=== PATIENT | male | born 1955 | race Hispanic/Latino ===

== ENCOUNTER 2017-04-26 12:33 | Observation (INO) | payer MEDICARE ==
[2017-04-26 12:49] VITALS: BMI 37.5
[2017-04-26] MEDS ORDERED: Sodium Chloride 0.9% 1,000 ML IV ONE (14:12)
[2017-04-26] MEDS ORDERED: Sodium Chloride 0.9% 1,000 ML ONE (14:20)
[2017-04-26 14:39] LABS: BASO # 0.1 K/uL (0.0-0.2); BASO % 0.9 % (0.0-2.0); EOS # 0.3 K/uL (0.0-0.7); EOS % 4.7 % (0.0-4.0); HEMATOCRIT 42.4 % (35.0-51.0); LYMPH # 1.5 K/uL (1.0-4.3); LYMPH % 22.9 % (20.0-40.0); MEAN CELL VOLUME 88.4 fL (80.0-94.0); MEAN CORPUSCULAR HEMOGLOBIN 30.4 pg (27.0-31.0); MEAN CORPUSCULAR HGB CONC 34.4 g/dL (33.0-37.0); MEAN PLATELET VOLUME 7.3 fL (7.2-11.7); MONO # 0.6 K/uL (0.0-0.8); MONO % 9.4 % (0.0-10.0); NRBC % 0.5 % (0.0-2.0); RED CELL DISTRIBUTION WIDTH 13.6 % (11.5-14.5); WHITE BLOOD COUNT 6.7 K/uL (4.8-10.8)
--- NOTE | 2017-04-26 14:50 | C.PDOC ---
History Of Present Illness 61 y/o male presents to ED c/o sudden onset of chest pain one hour ago. Pt states that he was washing dishes when he suddenly felt sharp pain in his chest that lasted for a few seconds. Pt states that his chest pain resolved, but began to feel dizzy afterwards. Notes that dizziness still persists and is described as room spinning and lightheaded, and worse with movement. Denies history of vertigo. Denies shortness of breath, or fever. Time Seen by Provider: 04/26/17 13:39 Chief Complaint (Nursing): Chest Pain History Per: Patient History/Exam Limitations: no limitations Onset/Duration Of Symptoms: Days Current Symptoms Are (Timing): Still Present Quality: "Pain" Associated Symptoms: denies: Nausea, Dyspnea, Diaphoresis, Syncope Modifying Factors: None Exacerbating Factors: None Alleviating Factors: None Recent travel outside of the [place]: No Additional History Per: Patient Past Medical History Reviewed: Historical Data, Nursing Documentation, Vital Signs Vital Signs: Last Vital Signs Temp 97.9 F 04/26/17 12:39 Pulse 89 04/26/17 16:47 Resp 16 04/26/17 16:47 BP 150/78 04/26/17 16:47 Pulse Ox 97 04/26/17 16:47 - Medical History PMH: Atrial Fibrillation, CAD, Cardia Arrhythmia, COPD, Depression, Emphysema ( interstitial fibrosis), Fractures, Gastritis, HTN, Hypercholesterolemia, Hyperlipidemia, TIA Denies: Chronic Kidney Disease - [facility] Procedures ETHMOIDECTOMY (02/13/98) INTRANAS LES DESTRUCTION (02/13/98) INTRANASAL ANTROTOMY (02/13/98) SUBMUC NASAL SEPT RESECT (02/13/98) TURBINECTOMY NEC (02/13/98) Family History: States: Unknown Family Hx - Social History Hx Alcohol Use: No Hx Substance Use: No Review Of Systems Except As Marked, All Systems Reviewed And Found Negative. Constitutional: Negative for: Fever, Chills Cardiovascular: Negative for: Chest Pain, Palpitations Respiratory: Negative for: Shortness of Breath Gastrointestinal: Negative for: Nausea, Vomiting, Abdominal Pain Neurological: Positive for: Dizziness. Negative for: Weakness, Numbness, Headache Physical Exam - Physical Exam Appears: Non-toxic, No Acute Distress Skin: Normal Color, Warm, Dry Head: Atraumatic, Normacephalic Eye(s): bilateral: Normal Inspection Oral Mucosa: Moist Neck: Normal ROM, Supple Chest: Symmetrical Cardiovascular: Rhythm Regular, No Murmur Respiratory: Normal Breath Sounds, No Rales, No Rhonchi, No Wheezing Gastrointestinal/Abdominal: Soft, No Tenderness Extremity: Normal ROM Neurological/Psych: Oriented x3, Normal Speech ED Course And Treatment - Laboratory Results Result Diagrams: 04/26/17 14:32 04/26/17 14:32 ECG: Interpreted By Me, Viewed By Me ECG Rhythm: Sinus Rhythm ECG Interpretation: No Acute Changes Rate From EC O2 Sat by Pulse Oximetry: 95 Pulse Ox Interpretation: Normal - Other Rad CXR X-Ray: Viewed By Me, Read By Radiologist Interpretation: PROCEDURE: CHEST RADIOGRAPH, 1 VIEW. HISTORY: Shortness of breath. COMPARISON: None available. FINDINGS: LUNGS: The lungs are well inflated. PLEURA: No pneumothorax or pleural fluid seen. CARDIOVASCULAR: Normal. OSSEOUS STRUCTURES: No significant abnormalities. VISUALIZED UPPER ABDOMEN: Normal. OTHER FINDINGS: None. IMPRESSION: No active and clear pulmonary disease. Progress Note: Blood work, EKG, CXR ordered and reviewed. Patient was given Antivert, and IV fluids. On re-eval, Patient is now asymptomatic, denies any neurologic complaints, is ambulating well, and is tolerating PO. case discussed with Dr. Henry who agrees upon admission. Disposition - Disposition Disposition: HOSPITALIZED Condition: GOOD - PA / ANALYTICAL DATA SCIENTIST / Resident Statement MD/DO has reviewed & agrees with the documentation as recorded. - Scribe Statement The provider has reviewed the documentation as recorded by the Patsyibian Valencia All medical record entries made by the Patsyibian were at my direction and personally dictated by me. I have reviewed the chart and agree that the record accurately reflects my personal performance of the history, physical exam, medical decision making, and the department course for this patient. I have also personally directed, reviewed, and agree with the discharge instructions and disposition.
[2017-04-26 14:54] LABS: INR 1.5
[2017-04-26 14:58] LABS: ALB/GLOB RATIO 1.3 (1.0-2.1); ALKALINE PHOSPHATASE 52 U/L (38-126); ALT/SGPT 59 U/L (21-72); AST/SGOT 56 U/L (17-59); BILIRUBIN,TOTAL 0.7 mg/dL (0.2-1.3); BLOOD UREA NITROGEN 15 mg/dL (9-20); CALCIUM 8.3 mg/dl (8.6-10.4); CARBON DIOXIDE 28 mmol/L (22-30); CHLORIDE 98 mmol/L (98-107); GFR AFRICAN-AMERICAN > 60; GLUCOSE,RANDOM 186 mg/dL (75-110); POTASSIUM 3.5 mmol/L (3.6-5.2); SODIUM 131 mmol/L (132-148); TOTAL PROTEIN 6.7 g/dL (6.3-8.3)
--- NOTE | 2017-04-26 15:08 | RAD ---
PROCEDURE: CHEST RADIOGRAPH, 1 VIEW HISTORY: Shortness of breath COMPARISON: None available. FINDINGS: LUNGS: The lungs are well inflated. PLEURA: No pneumothorax or pleural fluid seen. CARDIOVASCULAR: Normal. OSSEOUS STRUCTURES: No significant abnormalities. VISUALIZED UPPER ABDOMEN: Normal. OTHER FINDINGS: None. IMPRESSION: No active and clear pulmonary disease.
[2017-04-26] MEDS ORDERED: Albuterol HFA 90 mcg/actuation (8 g) INH PRN (18:26)
[2017-04-26 19:27] VITALS: RESP 20
--- NOTE | 2017-04-26 20:53 | CP.PCM.HP ---
History of Present Illness - History of Present Illness History of Present Illness: 61 y/o male with multiple medical problems presents to ED c/o sudden onset of chest pain. Pt states that he was washing dishes when he suddenly felt sharp pain in his chest that lasted for a few seconds. Pt states that his chest pain resolved, but began to feel dizzy afterwards. Notes that dizziness at present impruving. Present on Admission - Present on Admission Any Indicators Present on Admission: No Review of Systems - Constitutional Constitutional: As Per HPI - Cardiovascular Cardiovascular: As Per HPI - Respiratory Respiratory: As Per HPI - Gastrointestinal Gastrointestinal: As Per HPI - Musculoskeletal Musculoskeletal: As Per HPI - Neurological Neurological: As Per HPI - Psychiatric Psychiatric: As Per HPI Past Patient History - Past Medical History & Family History Past Medical History?: Yes - Past Social History Smoking Status: Never Smoked - CARDIAC Hx Atrial Fibrillation: Yes Hx Cardia Arrhythmia: Yes Hx Hypercholesterolemia: Yes Hx Hypertension: Yes - PULMONARY Hx Chronic Obstructive Pulmonary Disease (COPD): Yes Hx Emphysema: Yes (interstitial fibrosis) - NEUROLOGICAL Hx Transient Ischemic Attacks (TIA): Yes - HEENT Hx HEENT Problems: No - RENAL Hx Chronic Kidney Disease: No - ENDOCRINE/METABOLIC Hx Endocrine Disorders: Yes Hx Diabetes Mellitus Type 2: Yes - HEMATOLOGICAL/ONCOLOGICAL Hx Blood Disorders: No - INTEGUMENTARY Hx Dermatological Problems: No - MUSCULOSKELETAL/RHEUMATOLOGICAL Hx Fractures: Yes - GASTROINTESTINAL Hx Gastritis: Yes - GENITOURINARY/GYNECOLOGICAL Hx Genitourinary Disorders: No - PSYCHIATRIC Hx Depression: Yes Hx Substance Use: No - SURGICAL HISTORY Hx Cardiac Catheterization: Yes Other/Comment: 2004-rupture hernia,stesticle surgery,groin hernia then repeated it again . polyps removed intestine - ANESTHESIA Hx Anesthesia: Yes Hx Anesthesia Reactions: No Hx Malignant Hyperthermia: No Meds Allergies/Adverse Reactions: Allergies Allergy/AdvReac Type Severity Reaction Status Date / Time iodine Allergy ANAPHYLAXIS Verified 04/26/17 12:48 latex Allergy RASH Verified 04/26/17 12:48 contrast media Allergy ANAPHYLAXIS Uncoded 04/26/17 12:48 Physical Exam - Constitutional Appears: Non-toxic - Head Exam Head Exam: ATRAUMATIC, NORMAL INSPECTION, NORMOCEPHALIC - Eye Exam Eye Exam: Normal appearance - ENT Exam ENT Exam: Mucous Membranes Moist - Neck Exam Neck exam: Positive for: Full Rom, Normal Inspection - Respiratory Exam Respiratory Exam: Clear to Auscultation Bilateral - Cardiovascular Exam Cardiovascular Exam: REGULAR RHYTHM, +S1, +S2 - GI/Abdominal Exam GI & Abdominal Exam: Normal Bowel Sounds, Soft - Extremities Exam Extremities exam: Positive for: normal inspection - Neurological Exam Neurological exam: Alert, CN II-XII Intact, Normal Gait, Oriented x3, Reflexes Normal - Psychiatric Exam Psychiatric exam: Normal Affect - Skin Skin Exam: Normal Color Results - Vital Signs Recent Vital Signs: Last Vital Signs Temp 98.8 F 04/26/17 19:22 Pulse 83 04/26/17 19:22 Resp 20 04/26/17 19:22 BP 155/84 H 04/26/17 19:22 Pulse Ox 95 04/26/17 19:22 - Labs Result Diagrams: 04/26/17 14:32 04/26/17 14:32 Labs: Laboratory Results - last 24 hr 04/26/17 04/26/17 04/26/17 14:32 14:32 14:32 WBC 6.7 RBC 4.80 Hgb 14.6 Hct 42.4 MCV 88.4 MCH 30.4 MCHC 34.4 RDW 13.6 Plt Count 254 MPV 7.3 Neut % (Auto) 62.1 Lymph % (Auto) 22.9 [place] % (Auto) 9.4 Eos % (Auto) 4.7 H Baso % (Auto) 0.9 Neut # 4.2 Lymph # 1.5 [place] # 0.6 Eos # 0.3 Baso # 0.1 PT 17.6 H INR 1.5 APTT 41 H Sodium 131 L Potassium 3.5 L Chloride 98 Carbon Dioxide 28 Anion Gap 9 L BUN 15 Creatinine 0.9 Est GFR ( Amer) > 60 Est GFR (Non-Af Amer) > 60 Random Glucose 186 H Calcium 8.3 L Total Bilirubin 0.7 AST 56 ALT 59 Alkaline Phosphatase 52 Total Creatine Kinase 159 CK-MB (Mass) 3.85 H Troponin I < 0.0120 Total Protein 6.7 Albumin 3.8 Globulin 3.0 Albumin/Globulin Ratio 1.3 Lipase 52 Assessment & Plan (1) Hypertensive cardiovascular disease Status: Acute (2) Diabetes 1.5, managed as type 2 Status: Chronic (3) Hypercholesteremia Status: Chronic (4) Obesity (BMI 35.0-39.9 without comorbidity) Status: Chronic (5) Chest pain Status: Acute (6) CAD (coronary artery disease) Status: Chronic (7) Vertigo Status: Acute - Assessment and Plan (Free Text) Plan: As per orders.
[2017-04-26] MEDS ORDERED: Potassium Chloride 20 mEq ER Tab PO ONE (20:56)
[2017-04-26] MEDS ORDERED: (Lantus) Insulin Glargine, Recombinant SC SCH (22:00)
[2017-04-26] MEDS: (Novolin R) Insulin Human Regular 100 units/ml vial SC SCH (22:10)
--- NOTE | 2017-04-27 07:32 | CP.PCM.CON ---
History of Present Illness - History of Present Illness History of Present Illness: CONSULT DICTATED ABDUCT VERTIGO VESTIBULO NEURONITIS Vs CONCRETE INSPECTOR -VBI MRI AND CAROTID Past Patient History - Past Medical History & Family History Past Medical History?: Yes - Past Social History Smoking Status: Never Smoked - CARDIAC Hx Atrial Fibrillation: Yes Hx Cardia Arrhythmia: Yes Hx Hypercholesterolemia: Yes Hx Hypertension: Yes - PULMONARY Hx Chronic Obstructive Pulmonary Disease (COPD): Yes Hx Emphysema: Yes (interstitial fibrosis) - NEUROLOGICAL Hx Transient Ischemic Attacks (TIA): Yes - HEENT Hx HEENT Problems: No - RENAL Hx Chronic Kidney Disease: No - ENDOCRINE/METABOLIC Hx Endocrine Disorders: Yes Hx Diabetes Mellitus Type 2: Yes - HEMATOLOGICAL/ONCOLOGICAL Hx Blood Disorders: No - INTEGUMENTARY Hx Dermatological Problems: No - MUSCULOSKELETAL/RHEUMATOLOGICAL Hx Fractures: Yes - GASTROINTESTINAL Hx Gastritis: Yes - GENITOURINARY/GYNECOLOGICAL Hx Genitourinary Disorders: No - PSYCHIATRIC Hx Depression: Yes Hx Substance Use: No - SURGICAL HISTORY Hx Cardiac Catheterization: Yes Other/Comment: 2004-rupture hernia,stesticle surgery,groin hernia then repeated it again . polyps removed intestine - ANESTHESIA Hx Anesthesia: Yes Hx Anesthesia Reactions: No Hx Malignant Hyperthermia: No Meds Allergies/Adverse Reactions: Allergies Allergy/AdvReac Type Severity Reaction Status Date / Time iodine Allergy ANAPHYLAXIS Verified 04/26/17 12:48 latex Allergy RASH Verified 04/26/17 12:48 contrast media Allergy ANAPHYLAXIS Uncoded 04/26/17 12:48 - Medications Medications: Current Medications Albuterol (Ventolin Hfa 90 Mcg/Actuation (8 G)) 1 puff INH RQ6 PRN PRN Reason: Shortness of Breath Allopurinol (Zyloprim) 300 mg PO DAILY [facility] Amitriptyline HCl (Elavil) 50 mg PO HS [facility] Last Admin: 04/26/17 22:04 Dose: 50 mg Aspirin (Ecotrin) 81 mg PO DAILY [facility] Glipizide (Glucotrol) 10 mg PO BID [facility] Last Admin: 04/26/17 22:10 Dose: Not Given Home Med (Evolocumab [Repatha Sureclick]) 140 mg INJ DAILY [facility] Home Med (Garlic [Garlic]) 1,000 mg PO TID [facility] Home Med (Mv,Natan,Min/Iron/Folic Acid/Lut [Complete Multi Tablet]) 1 tab PO DAILY [facility] Home Med (Ubidecarenone [Coq-10]) 400 mg PO TID [facility] Hydrochlorothiazide (Hydrodiuril) 25 mg PO DAILY [facility] Insulin Glargine (Lantus) 65 unit SC HS [facility] Last Admin: 04/26/17 22:10 Dose: Not Given Insulin Human Regular (Novolin R) 0 unit SC ACHS [facility] PRN Reason: Protocol Last Admin: 04/26/17 22:10 Dose: Not Given Losartan Potassium (Cozaar) 100 mg PO DAILY [facility] Losartan Potassium (Cozaar) 100 mg PO DAILY [facility] Metoprolol Tartrate (Lopressor) 100 mg PO HS [facility] Last Admin: 04/26/17 22:04 Dose: 100 mg Montelukast Sodium (Singulair) 10 mg PO QPM [facility] Rgdol-2-Mcyy Ethyl Esters (Lovaza) 1 gm PO BID [facility] Pantoprazole Sodium (Protonix Ec Tab) 40 mg PO DAILY [facility] Rivaroxaban (Xarelto) 20 mg PO DAILY [facility] Tiotropium [employer] (Spiriva Inhalation Handihaler Device) 1 inhaler INH RQD [facility] Results - Vital Signs Recent Vital Signs: Last Vital Signs Temp 98.1 F 04/26/17 23:20 Pulse 75 04/27/17 04:09 Resp 20 04/26/17 23:20 BP 157/84 H 04/26/17 23:20 Pulse Ox 95 04/26/17 23:20 - Labs Result Diagrams: 04/26/17 14:32 04/26/17 14:32 Labs: Laboratory Results - last 24 hr 04/26/17 04/26/17 04/26/17 14:32 14:32 14:32 WBC 6.7 RBC 4.80 Hgb 14.6 Hct 42.4 MCV 88.4 MCH 30.4 MCHC 34.4 RDW 13.6 Plt Count 254 MPV 7.3 Neut % (Auto) 62.1 Lymph % (Auto) 22.9 [place] % (Auto) 9.4 Eos % (Auto) 4.7 H Baso % (Auto) 0.9 Neut # 4.2 Lymph # 1.5 [place] # 0.6 Eos # 0.3 Baso # 0.1 PT 17.6 H INR 1.5 APTT 41 H Sodium 131 L Potassium 3.5 L Chloride 98 Carbon Dioxide 28 Anion Gap 9 L BUN 15 Creatinine 0.9 Est GFR ( Amer) > 60 Est GFR (Non-Af Amer) > 60 POC Glucose (mg/dL) Random Glucose 186 H Calcium 8.3 L Total Bilirubin 0.7 AST 56 ALT 59 Alkaline Phosphatase 52 Total Creatine Kinase 159 CK-MB (Mass) 3.85 H Troponin I < 0.0120 Total Protein 6.7 Albumin 3.8 Globulin 3.0 Albumin/Globulin Ratio 1.3 Lipase 52 04/26/17 04/26/17 04/27/17 21:48 22:49 06:34 WBC RBC Hgb Hct MCV MCH MCHC RDW Plt Count MPV Neut % (Auto) Lymph % (Auto) [place] % (Auto) Eos % (Auto) Baso % (Auto) Neut # Lymph # [place] # Eos # Baso # PT INR APTT Sodium Potassium Chloride Carbon Dioxide Anion Gap BUN Creatinine Est GFR ( Amer) Est GFR (Non-Af Amer) POC Glucose (mg/dL) 83 161 H Random Glucose Calcium Total Bilirubin AST ALT Alkaline Phosphatase Total Creatine Kinase CK-MB (Mass) Troponin I < 0.0120 Total Protein Albumin Globulin Albumin/Globulin Ratio Lipase
[2017-04-27 08:14] VITALS: TEMP 97.9; O2SAT 96
[2017-04-27] MEDS: (Novolin R) Insulin Human Regular 100 units/ml vial SC SCH ×3 (08:20→12:15)
[2017-04-27 08:40] LABS: TROPONIN I 0.014 ng/mL (0.00-0.120)
[2017-04-27] MEDS ORDERED: LUT PO SCH (10:00)
[2017-04-27] MEDS ORDERED: Enoxaparin 40 mg Syringe SC SCH (10:00)
[2017-04-27] MEDS ORDERED: Omega-3-Acid Ethyl Esters 1 GM Cap PO SCH (10:00)
[2017-04-27] MEDS ORDERED: EVOLOCUMAB 140 MG INJ SCH (10:00)
[2017-04-27] MEDS ORDERED: IRON PO SCH (10:00)
[2017-04-27] MEDS ORDERED: UBIDECARENONE 400 MG PO SCH (10:00)
[2017-04-27] MEDS ORDERED: Pantoprazole 40 mg EC Tab PO SCH (10:00)
[2017-04-27] MEDS ORDERED: FOLIC ACID PO SCH (10:00)
[2017-04-27] MEDS ORDERED: MV CAL MIN PO SCH (10:00)
[2017-04-27] MEDS ORDERED: GARLIC 1000 MG PO SCH (10:00)
--- NOTE | 2017-04-27 12:53 | CON ---
DATE: 04/27/2017 REASON FOR CONSULTATION: Dizziness. CHIEF COMPLAINT: The patient was brought in to [facility] with a history of abrupt onset of dizziness. From neurology point of view, I was called in to evaluate him for further management. HISTORY OF PRESENT ILLNESS: Mr. Jorge Jones is a 61-year-old, moderately obese, right-handed who is known to me from his previous hospitalizations at [facility] and being followed by me for his cervical and lumbosacral stenosis and for his stroke. He had a workup and he was supposed to go for physical therapy. However, prior to the admission, after washing his dishes at home, he walked towards the window and suddenly he felt vertigo as he was leaning on the wall for certain period of time and then he went down to sit himself. He felt nausea associating with his vertiginous feeling and no vomiting. History of some sinus problem preceding to this. No history of taking any medication for his sinus problem and upper respiratory tract infection. This above episode is not associated with any focal weakness, double vision or speech impairment. PAST MEDICAL HISTORY: Atrial fibrillation, coronary artery disease, cardiac arrhythmia, depression, emphysema, ascites, hypertension, dyslipidemia, hyperlipidemia, TIA, sleep apnea. PERSONAL HISTORY: Denies smoking or alcohol use. ALLERGIES: IODINE AND LATEX. REVIEW OF SYSTEMS: A 12-point system has been reviewed. From neuro, abrupt onset of dizziness. MEDICATIONS: Losartan, Ecotrin, Elavil, HydroDIURIL, Lantus insulin, Lopressor, Novolin, Singulair. PHYSICAL EXAMINATION VITAL SIGNS: Blood pressure 157/84, mean arterial pressure of 108, respirations 16, temperature afebrile. NECK: Supple. No carotid bruits. HEART: Sounds are regular. CHEST: Fair air entry. EXTREMITIES: No edema in legs. NEUROLOGIC: Mental status examination: He is awake, alert, and oriented to person, place, and time. Speech is clear. Naming, repetition, fluency, comprehension all within normal. Cranial nerve examination: Visual field intact. Pupils reactive to light. Extraocular movement normal. No nystagmus. No facial sensory deficit. No facial asymmetry. Hearing is normal. Tongue is midline. Good gag. Motor examination: On an outstretched hand with eyes closed, no drift noted. Power is symmetric on either side. Deep tendon reflexes absent. Plantars are downgoing. SENSORY EXAMINATION: Grossly intact except distal sensory motor neuropathy. No cortical sensory loss. COORDINATION: [id number] test is intact. Gait seems to be intact. No ataxia. LABORATORY DATA: WBC 6.7, hemoglobin 14.6, hematocrit 42.4, platelet 254,000. PT 17.6, INR 1.5, PTT 41, sodium 131, potassium 3.5, chloride 98, GFR more than 60, glucose 186, and calcium 8.3. CONCLUSION: Mr. Jorge Jones has been presenting with the followin. 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 2. Considering his risk factors, the patient should have a [employer] territory ischemic process. 3. Longstanding cervical as well as lumbosacral stenosis. 4. Diabetes, obesity, hypertension, and coronary artery disease. All should be followed by primary care physician. 5. The patient should be getting out of the bed. 6. Physical therapy should be followed for his neck and lower back problem. 7. Continue anti-platelets for now. The MRI of the brain is scheduled for now to rule out any ischemic process. 8. The patient will be followed while he is in the hospital Tremaine Hughes MD
[2017-04-27 13:12] LABS: FREE T4 0.68 ng/dL (0.78-2.19)
[2017-04-27 13:25] LABS: THYROID STIMULATING HORMONE 2.25 mIU/L (0.46-4.68)
--- NOTE | 2017-04-27 13:50 | VASCLAB ---
PROCEDURE: HISTORY: ASSESS STENOSIS COMPARISON: None available. TECHNIQUE: Grayscale and duplex Doppler evaluation of the cervical carotid and vertebral arteries were performed. The common carotid, carotid bifurcations and cervical Internal Carotid Artery (ICA) and proximal External Carotid Artery (ECA) were evaluated. The vertebral arteries were evaluated for gross patency and flow direction. Report prepared by Martin Valente, BS, RVT FINDINGS: RIGHT CAROTID ARTERIES: 1. Common Carotid Artery: No significant focal plaque formation of the right common carotid artery. Maximum Peak Systolic velocity: 95 cm/sec: End-diastolic velocity 24 cm/sec. 2. Carotid Bifurcation: plaque formation. Maximum Peak Systolic velocity: 96 cm/sec: End-diastolic velocity 22 cm/sec. 3. Internal Carotid Artery: Plaque description: 3.1. Proximal Segment: Peak systolic velocity 138 cm/sec: End-diastolic velocity 39 cm/sec - % stenosis 0-15% 3.2. Middle Segment: Peak systolic velocity 114 cm/sec: End-diastolic velocity 40 cm/sec - % stenosis 0-15% 3.3. Distal Segment: Peak systolic velocity 92 cm/sec: End-diastolic velocity 35 cm/sec - % stenosis 0-15% 4. External Carotid Artery: No significant focal plaque formation. Peak systolic velocity 143 cm/sec 5. ICA/CCA Ratio: 1.5 LEFT CAROTID ARTERIES: 1. Common Carotid Artery: No significant focal plaque formation of the left common carotid artery. Maximum Peak Systolic velocity: 102 cm/sec: End-diastolic velocity 29 cm/sec. 2. Carotid Bifurcation: plaque formation. Maximum Peak Systolic velocity: 123 cm/sec: End-diastolic velocity 31 cm/sec. 3. Internal Carotid Artery: Plaque description: 3.1. Proximal Segment: Peak systolic velocity 129 cm/sec: End-diastolic velocity 33 cm/sec - % stenosis 0-15% 3.2. Middle Segment: Peak systolic velocity 61 cm/sec: End-diastolic velocity 23 cm/sec - % stenosis 0-15% 3.3. Distal Segment: Peak systolic velocity 72 cm/sec: End-diastolic velocity 23 cm/sec - % stenosis 0-15% 4. External Carotid Artery: No significant focal plaque formation. Peak systolic velocity 163 cm/sec 5. ICA/CCA Ratio: 1.3 VERTEBRAL ARTERIES: 1. Right Vertebral Artery: The right vertebral artery flow direction is antegrade. 2. Left Vertebral Artery: The left vertebral artery flow direction is antegrade. OTHER FINDINGS: 1. Right Brachial Blood pressure: 158 mmHg. 2. Left Brachial Blood pressure: 160 mmHg. IMPRESSION: RIGHT: Duplex scan does not suggest hemodynamically significant stenosis of the right extracranial carotid arteries. LEFT: Duplex scan does not suggest hemodynamically significant stenosis of the left extracranial carotid arteries.
[2017-04-27 15:53] VITALS: BP 167/93; PULSE 90
--- NOTE | 2017-04-27 17:42 | CP.PCM.DIS ---
Provider - Provider Date of Admission: 04/26/17 15:16 Attending physician: Carlos Henry MD Time Spent in preparation of Discharge (in minutes): 30 Diagnosis - Discharge Diagnosis (1) Hypertensive cardiovascular disease Status: Acute (2) Diabetes 1.5, managed as type 2 Status: Chronic (3) Hypercholesteremia Status: Chronic (4) Obesity (BMI 35.0-39.9 without comorbidity) Status: Chronic (5) Chest pain Status: Acute (6) CAD (coronary artery disease) Status: Chronic (7) Vertigo Status: Acute Hospital Course - Lab Results Lab Results: Most Recent Lab Values WBC 6.7 K/uL (4.8-10.8) 04/26/17 14:32 RBC 4.80 Mil/uL (4.40-5.90) 04/26/17 14:32 Hgb 14.6 g/dL (12.0-18.0) 04/26/17 14:32 Hct 42.4 % (35.0-51.0) 04/26/17 14:32 MCV 88.4 fL (80.0-94.0) 04/26/17 14:32 MCH 30.4 pg (27.0-31.0) 04/26/17 14:32 MCHC 34.4 g/dL (33.0-37.0) 04/26/17 14:32 RDW 13.6 % (11.5-14.5) 04/26/17 14:32 Plt Count 254 K/uL (130-400) 04/26/17 14:32 MPV 7.3 fL (7.2-11.7) 04/26/17 14:32 Neut % (Auto) 62.1 % (50.0-75.0) 04/26/17 14:32 Lymph % (Auto) 22.9 % (20.0-40.0) 04/26/17 14:32 [place] % (Auto) 9.4 % (0.0-10.0) 04/26/17 14:32 Eos % (Auto) 4.7 % (0.0-4.0) H 04/26/17 14:32 Baso % (Auto) 0.9 % (0.0-2.0) 04/26/17 14:32 Neut # 4.2 K/uL (1.8-7.0) 04/26/17 14:32 Lymph # 1.5 K/uL (1.0-4.3) 04/26/17 14:32 [place] # 0.6 K/uL (0.0-0.8) 04/26/17 14:32 Eos # 0.3 K/uL (0.0-0.7) 04/26/17 14:32 Baso # 0.1 K/uL (0.0-0.2) 04/26/17 14:32 ESR 39 mm/hr (0-15) H 04/27/17 11:59 PT 17.6 SECONDS (9.7-12.2) H 04/26/17 14:32 INR 1.5 04/26/17 14:32 APTT 41 SECONDS (21-34) H 04/26/17 14:32 Sodium 131 mmol/L (132-148) L 04/26/17 14:32 Potassium 3.5 mmol/L (3.6-5.2) L 04/26/17 14:32 Chloride 98 mmol/L (98-107) 04/26/17 14:32 Carbon Dioxide 28 mmol/L (22-30) 04/26/17 14:32 Anion Gap 9 (10-20) L 04/26/17 14:32 BUN 15 mg/dL (9-20) 04/26/17 14:32 Creatinine 0.9 mg/dL (0.8-1.5) 04/26/17 14:32 Est GFR ( Amer) > 60 04/26/17 14:32 Est GFR (Non-Af Amer) > 60 04/26/17 14:32 POC Glucose (mg/dL) 200 mg/dL (65-110) H 04/27/17 16:30 Random Glucose 186 mg/dL (75-110) H 04/26/17 14:32 Hemoglobin A1c 8.1 % (4.2-6.5) H 04/27/17 11:59 Calcium 8.3 mg/dl (8.6-10.4) L 04/26/17 14:32 Total Bilirubin 0.7 mg/dL (0.2-1.3) 04/26/17 14:32 AST 56 U/L (17-59) 04/26/17 14:32 ALT 59 U/L (21-72) 04/26/17 14:32 Alkaline Phosphatase 52 U/L (38-126) 04/26/17 14:32 Total Creatine Kinase 88 U/L (55-170) 04/27/17 08:04 CK-MB (Mass) 2.94 ng/mL (0.0-3.38) 04/27/17 08:04 Troponin I 0.0130 ng/mL (0.00-0.120) 04/27/17 11:59 Total Protein 6.7 g/dL (6.3-8.3) 04/26/17 14:32 Albumin 3.8 g/dL (3.5-5.0) 04/26/17 14:32 Globulin 3.0 gm/dL (2.2-3.9) 04/26/17 14:32 Albumin/Globulin Ratio 1.3 (1.0-2.1) 04/26/17 14:32 Lipase 52 U/L (23-300) 04/26/17 14:32 Vitamin B12 472 pg/mL (239-931) 04/27/17 08:04 Free T4 0.68 ng/dL (0.78-2.19) L 04/27/17 11:59 TSH 3rd Generation 2.25 mIU/L (0.46-4.68) 04/27/17 11:59 RPR Nonreactive (NONREACTIVE) 04/27/17 11:59 - Hospital Course Hospital Course: 61 y/o male with multiple medical problems presents to ED c/o sudden onset of chest pain. Pt states that he was washing dishes when he suddenly felt sharp pain in his chest that lasted for a few seconds. Pt states that his chest pain resolved, but began to feel dizzy afterwards. Patient condition improving well. At the present time not focal deficit, no vertigo, no weakness, no CP, no SOB. Will dc home and follow as OP. Discharge Exam - Head Exam Head Exam: ATRAUMATIC, NORMAL INSPECTION, NORMOCEPHALIC - Eye Exam Eye Exam: Normal appearance - Neck Exam Neck exam: Full Rom - Respiratory Exam Respiratory Exam: Clear to PA & Lateral - Cardiovascular Exam Cardiovascular Exam: REGULAR RHYTHM, +S1, +S2 - GI/Abdominal Exam GI & Abdominal Exam: Normal Bowel Sounds - Extremities Exam Extremities exam: normal inspection - Neurological Exam Neurological exam: Alert, CN II-XII Intact, Normal Gait, Oriented x3, Reflexes Normal - Psychiatric Exam Psychiatric exam: Normal Affect - Skin Skin Exam: Normal Color Discharge Plan - Follow Up Plan Condition: GOOD Disposition: HOME/ ROUTINE
--- NOTE | 2017-04-27 21:38 | CARD ---
APPROVED REPORT EXAM: Two-dimensional and M-mode echocardiogram with Doppler and color Doppler. Other Information Quality : GoodRhythm : INDICATION CVA/TIA Dizziness and Vertigo Cardiac Disease: CAD Chest Pain RISK FACTORS Hyperlipidemia 2D DIMENSIONS IVSd1.2 (0.7-1.1cm)LVDd4.4 (3.9-5.9cm) PWd1.2 (0.7-1.1cm)LVDs2.9 (2.5-4.0cm) FS (%) 34.0 %LVEF (%)63.2 (>50%) M-Mode DIMENSIONS Left Atrium (MM)3.87 (2.5-4.0cm)Aortic Root3.26 (2.2-3.7cm) Aortic Cusp Exc.2.13 (1.5-2.0cm) Mitral Valve MV E Haxmofsl07.0cm/sMV A Waojlvrg25.0cm/sE/A ratio1.0 TDI E/Lateral E'0.0E/Medial E'0.0 LEFT VENTRICLE The left ventricle is normal size. There is normal left ventricular wall thickness. Left ventricular systolic function is borderline The left ventricular ejection fraction is about 59%. No regional wall motion abnormalities noted. The left ventricular diastolic function is normal. No left ventricle thrombus noted on this study. There is no ventricular septal defect visualized. There is no left ventricular aneurysm. There is no mass noted in the left ventricle. RIGHT VENTRICLE The right ventricle is normal size. There is normal right ventricular wall thickness. The right ventricular systolic function is normal. ATRIA The left atrium size is normal. The right atrium size is normal. The interatrial septum is intact with no evidence for an atrial septal defect. AORTIC VALVE The aortic valve is normal in structure and function. No aortic regurgitation is present. There is no aortic valvular stenosis. There is no aortic valvular vegetation. MITRAL VALVE The mitral valve is normal in structure and function. There is no evidence of mitral valve prolapse. There is no mitral valve stenosis. There is no mitral valve regurgitation noted. TRICUSPID VALVE The tricuspid valve is normal in structure and function. There is no tricuspid valve regurgitation noted. There is no tricuspid valve prolapse or vegetation. There is no tricuspid valve stenosis. PULMONIC VALVE The pulmonary valve is normal in structure and function. There is no pulmonic valvular regurgitation. There is no pulmonic valvular stenosis. GREAT VESSELS The aortic root is normal in size. The ascending aorta is normal in size. The pulmonary artery is normal. The IVC is normal in size and collapses >50% with inspiration. PERICARDIAL EFFUSION The pericardium appears normal. There is no pleural effusion. <Conclusion> Left ventricular systolic function is borderline The left ventricular ejection fraction is about 59%. Normal Doppler.
--- NOTE | 2017-04-27 21:51 | CARD ---
APPROVED REPORT EKG Measurement Heart [id number] <Conclusion> Normal sinus rhythm Rightward axis Borderline ECG
[2017-04-28] MEDS ORDERED: Tiotropium 18 mcg Cap For Inhalation INH SCH (08:00)
== END 2017-04-27 18:05 | disposition home or self-care (01) ==
LOC: C.ER 12:33 → C.9E 15:16 → C.6T 17:31
PROVIDERS: ADMIT Internal Medicine; ATTEND Internal Medicine
DX: R07.9 Chest pain, unspecified (principal); I11.9 Hypertensive heart disease without heart failure; E11.9 Type 2 diabetes mellitus without complications; E78.00 Pure hypercholesterolemia, unspecified; E66.9 Obesity, unspecified; Z68.35 Body mass index [BMI] 35.0-35.9, adult; I25.10 Atherosclerotic heart disease of native coronary artery without angina pectoris; R42 Dizziness and giddiness; J43.9 Emphysema, unspecified; Z86.73 Personal history of transient ischemic attack (TIA), and cerebral infarction without residual deficits; Z91.040 Latex allergy status; Z79.4 Long term (current) use of insulin
CPT/HCPCS: 36415; 71010; 80053; 82550; 82553; 82607; 82948; 83036; 83690; 84439; 84443; 84484; 85025; 85610; 85651; 85730; 86592; 93005; 93306; 93880; 95812; 99285; G0378; J7040

== ENCOUNTER 2018-01-01 16:02 | Observation (INO) | payer MEDICARE ==
[2018-01-01 16:02] VITALS: BMI 37.5
--- NOTE | 2018-01-01 17:00 | C.PDOC ---
History Of Present Illness 62 year old male with past medical history of afib, COPD, HTN, HLD, DM Type II and gout presents to the ER for chest pain and shortness of breath. Patient states the chest pain started today at 11am while he was watching TV. He states the pain radiates to his epigastric area where he also feels bloated. He states he also felt palpitations that come and go and he becomes diaphoretic. He states his shortness of breath is different from his baseline as he feels like it is harder for him to take a deep breath in. He states his also noticed lower extremity swelling that occurred overnight. He states his last bowel movement was yesterday evening. Patient denies nausea, vomiting, diarrhea or constipation. PMD: Dr. Henry Continuous Miner Operator Helper: Dr. Higginbotham Time Seen by Provider: 01/01/18 16:42 Chief Complaint (Nursing): Shortness Of Breath Past Medical History Vital Signs: Last Vital Signs Temp 99.5 F 01/01/18 17:26 Pulse 98 H 01/01/18 17:26 Resp 21 01/01/18 17:26 BP 161/90 H 01/01/18 17:26 Pulse Ox 93 L 01/01/18 17:26 - Medical History PMH: Atrial Fibrillation, CAD, Cardia Arrhythmia, COPD, Depression, Emphysema ( interstitial fibrosis), Fractures, Gastritis, HTN, Hypercholesterolemia, Hyperlipidemia, TIA Denies: Chronic Kidney Disease - [facility] ETHMOIDECTOMY (02/13/98) INTRANAS LES DESTRUCTION (02/13/98) INTRANASAL ANTROTOMY (02/13/98) SUBMUC NASAL SEPT RESECT (02/13/98) TURBINECTOMY NEC (02/13/98) Family History: States: Unknown Family Hx - Social History Hx Alcohol Use: No Hx Substance Use: No Review Of Systems Constitutional: Positive for: Sweats. Negative for: Fever, Chills Cardiovascular: Positive for: Chest Pain, Palpitations, Edema. Negative for: Light Headedness Respiratory: Positive for: Shortness of Breath Gastrointestinal: Positive for: Other (bloated). Negative for: Nausea, Vomiting , Diarrhea, Constipation Neurological: Negative for: Weakness, Dizziness Physical Exam - Physical Exam Appears: No Acute Distress Skin: Normal Color Head: Atraumatic, Normacephalic Eye(s): bilateral: Normal Inspection, PERRL, EOMI Oral Mucosa: Moist Cardiovascular: Rhythm Irregular, Edema Respiratory: Normal Breath Sounds, No Rales, No Rhonchi, No Stridor, No Wheezing Gastrointestinal/Abdominal: Soft, No Tenderness, No Organomegaly, No Mass, Distention, No Guarding Extremity: No Tenderness, Pedal Edema (+2 pedal edema bilaterally to his knees ) Neurological/Psych: Oriented x3 ED Course And Treatment - Laboratory Results Result Diagrams: 01/01/18 17:06 01/01/18 17:06 ECG: Interpreted By Me, Viewed By Me ECG Rhythm: Atrial Flutter O2 Sat by Pulse Oximetry: 98 - Radiology CXR: Read By Radiologist CXR Interpretation: Yes: No Acute Disease Medical Decision Making Medical Decision Making: Trop negative CK-MB 4.41 BNP [address] Henry who accepted patient for observation tele. Disposition Discussed With DrShila: Derrick Arteaga Doctor Will See Patient In The: ED - Disposition Disposition: HOSPITALIZED Disposition Time: 18:01 Condition: FAIR Forms: [facility] (Hungarian) - Clinical Impression Clinical Impression: Atrial fib/flutter, transient, Chest pain, Shortness of breath - PA / SIPHONER / Resident Statement MD/DO has reviewed & agrees with the documentation as recorded. MD/DO has examined the patient and agrees with the treatment plan.
--- NOTE | 2018-01-01 17:15 | RAD ---
Date of service: 01/01/2018 HISTORY: chest pain COMPARISON: Comparison chest 12/09/2017. FINDINGS: LUNGS: No active pulmonary disease. PLEURA: No significant pleural effusion identified, no pneumothorax apparent. CARDIOVASCULAR: Normal. OSSEOUS STRUCTURES: No significant abnormalities. VISUALIZED UPPER ABDOMEN: Normal. OTHER FINDINGS: None. IMPRESSION: No active disease.
[2018-01-01 17:29] LABS: ALB/GLOB RATIO 1.2 (1.0-2.1); ALBUMIN 3.9 g/dL (3.5-5.0); CALCIUM 9.1 mg/dl (8.6-10.4); GFR AFRICAN-AMERICAN > 60; GFR NON-AFRICAN AMERICAN 56
[2018-01-01 17:39] LABS: ALT/SGPT 38 U/L (21-72); AST/SGOT 37 U/L (17-59); B-TYPE NATRIURETIC PEPTIDE 47.2 pg/mL (0-900); BLOOD UREA NITROGEN 19 mg/dL (9-20); CK-MB 4.41 ng/mL (0.0-3.38)
[2018-01-01 17:52] LABS: BASO # 0.1 K/uL (0.0-0.2); BASO % 0.7 % (0.0-2.0); EOS # 0.3 K/uL (0.0-0.7); EOS % 3.6 % (0.0-4.0); HEMOGLOBIN 14.5 g/dL (12.0-18.0); LYMPH # 2.2 K/uL (1.0-4.3); LYMPH % 30.6 % (20.0-40.0); MEAN CELL VOLUME 89.7 fL (80.0-94.0); MEAN CORPUSCULAR HEMOGLOBIN 31.1 pg (27.0-31.0); MEAN CORPUSCULAR HGB CONC 34.7 g/dL (33.0-37.0); MEAN PLATELET VOLUME 8.1 fL (7.2-11.7); MONO # 0.7 K/uL (0.0-0.8); MONO % 9.5 % (0.0-10.0); NEUT # 3.9 K/uL (1.8-7.0); NEUT % 55.6 % (50.0-75.0); NRBC % 0.1 % (0.0-2.0); RBC 4.67 Mil/uL (4.40-5.90); RED CELL DISTRIBUTION WIDTH 13.8 % (11.5-14.5); WHITE BLOOD COUNT 7.1 K/uL (4.8-10.8)
[2018-01-01] MEDS ORDERED: Albuterol HFA 90 mcg/actuation (8 g) INH PRN (19:09)
[2018-01-01] MEDS: (Novolin R) Insulin Human Regular 100 units/ml vial SC SCH (22:07)
[2018-01-01] MEDS: (Lantus) Insulin Glargine, Recombinant SC SCH (22:08)
[2018-01-01] MEDS: Omega-3-Acid Ethyl Esters 1 GM Cap PO SCH (22:09)
[2018-01-02 04:30] LABS: URINE BILIRUBIN NEGATIVE (NEGATIVE); URINE BLOOD NEGATIVE (NEGATIVE); URINE CLARITY Clear (Clear); URINE COLOR Yellow (YELLOW); URINE GLUCOSE (UA) 3+ mg/dL (Normal); URINE LEUKOCYTE ESTERASE NEG Leu/uL (Negative); URINE PROTEIN 3+ mg/dL (NEGATIVE); URINE UROBILINOGEN NORMAL mg/dL (0.2-1.0)
--- NOTE | 2018-01-02 08:53 | CP.PCM.CON ---
History of Present Illness - History of Present Illness History of Present Illness: Consultation for evaluation of diaphoretic spell during episode of afib HPI: 62-year-old male with past medical history significant for hypertension diabetes mellitus chronic active fibrillation on anticoagulant with Xarelto who presented with an episode of palpitations associated with a severe episode of diaphoretic spells patient had 2-3 recurrent episodes lasting for 10-15 minutes or which EMS was called on initial presentation he was noted to be in a flutter with rapid ventricular response. He had ischemic evaluation with cardiac catheterization about 10 years ago. At baseline functional capacity is mildly impaired. Does have dyspnea on exertion but denies any chest pains. Review of Systems - Review of Systems Systems not reviewed;Unavailable: Acuity of Condition - Constitutional Constitutional: As Per HPI - EENT Eyes: As Per HPI Ears: As Per HPI Nose/Mouth/Throat: As Per HPI - Cardiovascular Cardiovascular: As Per HPI - Respiratory Respiratory: As Per HPI - Gastrointestinal Gastrointestinal: As Per HPI - Genitourinary Genitourinary: As Per HPI - Reproductive: Male Reproductive:Male: As Per HPI - Musculoskeletal Musculoskeletal: As Per HPI - Integumentary Integumentary: As Per HPI - Neurological Neurological: As Per HPI - Psychiatric Psychiatric: As Per HPI - Endocrine Endocrine: As Per HPI - Hematologic/Lymphatic Hematologic: As Per HPI Past Patient History - Past Medical History & Family History Past Medical History?: Yes - Past Social History Smoking Status: Never Smoked - CARDIAC Hx Atrial Fibrillation: Yes Hx Cardia Arrhythmia: Yes Hx Hypercholesterolemia: Yes Hx Hypertension: Yes - PULMONARY Hx Chronic Obstructive Pulmonary Disease (COPD): Yes Hx Emphysema: Yes (interstitial fibrosis) - NEUROLOGICAL Hx Transient Ischemic Attacks (TIA): Yes - HEENT Hx HEENT Problems: No - RENAL Hx Chronic Kidney Disease: No - ENDOCRINE/METABOLIC Hx Endocrine Disorders: Yes Hx Diabetes Mellitus Type 2: Yes - HEMATOLOGICAL/ONCOLOGICAL Hx Blood Disorders: No - INTEGUMENTARY Hx Dermatological Problems: No - MUSCULOSKELETAL/RHEUMATOLOGICAL Hx Fractures: Yes - GASTROINTESTINAL Hx Gastritis: Yes - GENITOURINARY/GYNECOLOGICAL Hx Genitourinary Disorders: No - PSYCHIATRIC Hx Depression: Yes Hx Substance Use: No - SURGICAL HISTORY Hx Cardiac Catheterization: Yes Other/Comment: 2004-rupture hernia,stesticle surgery,groin hernia then repeated it again . polyps removed intestine - ANESTHESIA Hx Anesthesia: Yes Hx Anesthesia Reactions: No Hx Malignant Hyperthermia: No Meds Allergies/Adverse Reactions: Allergies Allergy/AdvReac Type Severity Reaction Status Date / Time iodine Allergy ANAPHYLAXIS Verified 01/01/18 16:44 latex Allergy RASH Verified 01/01/18 16:44 contrast media Allergy ANAPHYLAXIS Uncoded 01/01/18 16:44 - Medications Medications: Current Medications Albuterol (Ventolin Hfa 90 Mcg/Actuation (8 G)) 1 puff INH RQ4 PRN PRN Reason: Shortness of Breath Allopurinol (Zyloprim) 300 mg PO DAILY [facility] Amitriptyline HCl (Elavil) 50 mg PO HS [facility] Last Admin: 01/01/18 22:09 Dose: 50 mg Aspirin (Ecotrin) 81 mg PO DAILY [facility] Ergocalciferol (Drisdol 50,000 Intl Units Cap) 1 cap PO QWK [facility] Ferrous Sulfate (Feosol) 325 mg PO DAILY [facility] Glipizide (Glucotrol) 10 mg PO BID [facility] Hydrochlorothiazide (Hydrodiuril) 25 mg PO DAILY [facility] Insulin Aspart (Novolog) 3 unit SC AC [facility] Insulin Glargine (Lantus) 70 unit SC HS [facility] Last Admin: 01/01/18 22:08 Dose: 70 units Insulin Human Regular (Novolin R) 0 unit SC ACHS [facility] PRN Reason: Protocol Last Admin: 01/01/18 22:07 Dose: Not Given Losartan Potassium (Cozaar) 100 mg PO DAILY [facility] Losartan Potassium (Cozaar) 100 mg PO DAILY [facility] Metoprolol Tartrate (Lopressor) 100 mg PO HS [facility] Last Admin: 01/01/18 22:09 Dose: 100 mg Montelukast Sodium (Singulair) 10 mg PO HS [facility] Last Admin: 01/01/18 22:09 Dose: 10 mg Multivitamins (Hexavitamin) 1 tab PO DAILY [facility] Lhdns-2-Gbbr Ethyl Esters (Lovaza) 1,000 gm PO QID [facility] Last Admin: 01/01/18 22:09 Dose: 1,000 gm Pantoprazole Sodium (Protonix Ec Tab) 40 mg PO DAILY [facility] Rivaroxaban (Xarelto) 20 mg PO DAILY [facility] Tiotropium [place] (Spiriva Inhalation Handihaler Device) 1 inhaler INH RQD [facility] Physical Exam - Constitutional Appears: Well - Head Exam Head Exam: ATRAUMATIC, NORMAL INSPECTION, NORMOCEPHALIC - Eye Exam Eye Exam: EOMI, Normal appearance, PERRL Pupil Exam: NORMAL ACCOMODATION, PERRL - ENT Exam ENT Exam: Mucous Membranes Moist, Normal Exam - Neck Exam Neck exam: Positive for: Normal Inspection - Respiratory Exam Respiratory Exam: Clear to Auscultation Bilateral, NORMAL BREATHING PATTERN - Cardiovascular Exam Cardiovascular Exam: Irregular Rhythm, +S1, +S2, Systolic Murmur - GI/Abdominal Exam GI & Abdominal Exam: Normal Bowel Sounds, Soft. absent: Tenderness - Extremities Exam Extremities exam: Positive for: normal inspection - Back Exam Back exam: NORMAL INSPECTION - Neurological Exam Neurological exam: Alert, CN II-XII Intact, Normal Gait, Oriented x3, Reflexes Normal - Psychiatric Exam Psychiatric exam: Normal Affect, Normal Mood - Skin Skin Exam: Dry, Intact, Normal Color, Warm Results - Vital Signs Recent Vital Signs: Last Vital Signs Temp 97.4 F L 01/02/18 08:24 Pulse 70 01/02/18 08:24 Resp 20 01/02/18 08:24 BP 156/86 H 01/02/18 08:24 Pulse Ox 96 01/02/18 08:24 - Labs Result Diagrams: 01/01/18 17:06 01/01/18 17:06 Labs: Laboratory Results - last 24 hr 01/01/18 01/01/18 01/01/18 17:06 17:06 20:03 WBC 7.1 RBC 4.67 Hgb 14.5 Hct 41.9 MCV 89.7 MCH 31.1 H MCHC 34.7 RDW 13.8 Plt Count 257 MPV 8.1 Neut % (Auto) 55.6 Lymph % (Auto) 30.6 [place] % (Auto) 9.5 Eos % (Auto) 3.6 Baso % (Auto) 0.7 Neut # (Auto) 3.9 Lymph # (Auto) 2.2 [place] # (Auto) 0.7 Eos # (Auto) 0.3 Baso # (Auto) 0.1 Sodium 139 Potassium 4.0 Chloride 99 Carbon Dioxide 26 Anion Gap 19 BUN 19 Creatinine 1.3 Est GFR ( Amer) > 60 Est GFR (Non-Af Amer) 56 Random Glucose 264 H Calcium 9.1 Total Bilirubin 0.5 AST 37 ALT 38 Alkaline Phosphatase 65 Total Creatine Kinase 197 H CK-MB (Mass) 4.41 H Troponin I < 0.0120 < 0.0120 NT-Pro-B Natriuret Pep 47.2 Total Protein 7.1 Albumin 3.9 Globulin 3.2 Albumin/Globulin Ratio 1.2 TSH 3rd Generation 2.94 Urine Color Urine Clarity Urine pH Ur Specific [place] Urine Protein Urine Glucose (UA) Urine Ketones Urine Blood Urine Nitrate Urine Bilirubin Urine Urobilinogen Ur Leukocyte Esterase Urine WBC (Auto) Urine RBC (Auto) 01/02/18 01/02/18 04:19 07:22 WBC RBC Hgb Hct MCV MCH MCHC RDW Plt Count MPV Neut % (Auto) Lymph % (Auto) [place] % (Auto) Eos % (Auto) Baso % (Auto) Neut # (Auto) Lymph # (Auto) [place] # (Auto) Eos # (Auto) Baso # (Auto) Sodium Potassium Chloride Carbon Dioxide Anion Gap BUN Creatinine Est GFR ( Amer) Est GFR (Non-Af Amer) Random Glucose Calcium Total Bilirubin AST ALT Alkaline Phosphatase Total Creatine Kinase CK-MB (Mass) Troponin I 0.0130 NT-Pro-B Natriuret Pep Total Protein Albumin Globulin Albumin/Globulin Ratio TSH 3rd Generation Urine Color Yellow Urine Clarity Clear Urine pH 5.0 Ur Specific [place] 1.016 Urine Protein 3+ H Urine Glucose (UA) 3+ H Urine Ketones Trace Urine Blood Negative Urine Nitrate Negative Urine Bilirubin Negative Urine Urobilinogen Normal Ur Leukocyte Esterase Neg Urine WBC (Auto) 1 Urine RBC (Auto) 2 Assessment & Plan (1) Chest pain Assessment and Plan: nuclear stress test Status: Acute (2) Shortness of breath Assessment and Plan: echo reviewed diuretic therapy Status: Acute (3) Atrial fib/flutter, transient Assessment and Plan: cont xarelto bb Status: Chronic (4) Dizziness Status: Acute (5) CAD (coronary artery disease) Status: Chronic (6) Hypercholesteremia Status: Chronic (7) Hypertensive cardiovascular disease Status: Chronic (8) Obesity (BMI 35.0-39.9 without comorbidity) Status: Chronic
[2018-01-02] MEDS: (Novolin R) Insulin Human Regular 100 units/ml vial SC SCH ×4 (09:22→21:32)
[2018-01-02] MEDS: (Novolog) Insulin Aspart, Recombinant 100 u/ml 10 ml vial SC SCH ×3 (09:23→17:18)
[2018-01-02] MEDS: Multiple Vitamins Tab PO SCH (09:24)
[2018-01-02] MEDS: Pantoprazole 40 mg EC Tab PO SCH ×2 (09:24→23:52)
[2018-01-02] MEDS ORDERED: Ergocalciferol 50,000 Intl Units Cap PO SCH (10:00)
[2018-01-02] MEDS ORDERED: GARLIC 1000 MG PO SCH (10:00)
[2018-01-02] MEDS ORDERED: EVOLOCUMAB 140 MG INJ SCH (10:00)
[2018-01-02] MEDS ORDERED: UBIDECARENONE 400 MG PO SCH (10:00)
[2018-01-02] MEDS ORDERED: VENTOLIN IH SCH (10:00)
[2018-01-02] MEDS ORDERED: PAK SQ SCH (10:00)
[2018-01-02] MEDS ORDERED: VICTOZA SQ SCH (10:00)
[2018-01-02] MEDS ORDERED: Albuterol HFA 90 mcg/actuation (8 g) INH PRN (10:15)
[2018-01-02] MEDS: Tiotropium 18 mcg Cap For Inhalation INH SCH (10:16)
[2018-01-02] MEDS: Omega-3-Acid Ethyl Esters 1 GM Cap PO SCH ×5 (10:41→21:30)
[2018-01-02] MEDS ORDERED: Caffeine Citrated **INJ** 20 MG/ML IV ONE (10:47)
--- NOTE | 2018-01-02 11:57 | CARD ---
APPROVED REPORT Date of service: 01/02/2018 EKG Measurement Heart [id number] P61 [id number] <Conclusion> Normal sinus rhythm Normal ECG
[2018-01-02] MEDS ORDERED: (Novolin R) Insulin Human Regular 100 units/ml vial SC ONE (13:30)
--- NOTE | 2018-01-02 15:01 | CP.PCM.HP ---
History of Present Illness - History of Present Illness History of Present Illness: 62 year old gentleman with past significant medical history of afib, COPD, HTN, HLD, DM Type II and gout. He presented in ER for chest pain and shortness of breath. Patient states the chest pain started the day of admission while he was at rest. He states the pain radiates to his epigastrium area. At present comfortable not in distress waiting for the stress test. Present on Admission - Present on Admission Any Indicators Present on Admission: No Review of Systems - Constitutional Constitutional: As Per HPI - EENT Eyes: As Per HPI - Cardiovascular Cardiovascular: Chest Pain at Rest - Respiratory Respiratory: As Per HPI - Gastrointestinal Gastrointestinal: As Per HPI - Musculoskeletal Musculoskeletal: As Per HPI - Integumentary Integumentary: As Per HPI - Neurological Neurological: As Per HPI Past Patient History - Past Medical History & Family History Past Medical History?: Yes - Past Social History Smoking Status: Never Smoked - CARDIAC Hx Atrial Fibrillation: Yes Hx Cardia Arrhythmia: Yes Hx Hypercholesterolemia: Yes Hx Hypertension: Yes - PULMONARY Hx Chronic Obstructive Pulmonary Disease (COPD): Yes Hx Emphysema: Yes (interstitial fibrosis) - NEUROLOGICAL Hx Transient Ischemic Attacks (TIA): Yes - HEENT Hx HEENT Problems: No - RENAL Hx Chronic Kidney Disease: No - ENDOCRINE/METABOLIC Hx Endocrine Disorders: Yes Hx Diabetes Mellitus Type 2: Yes - HEMATOLOGICAL/ONCOLOGICAL Hx Blood Disorders: No - INTEGUMENTARY Hx Dermatological Problems: No - MUSCULOSKELETAL/RHEUMATOLOGICAL Hx Fractures: Yes - GASTROINTESTINAL Hx Gastritis: Yes - GENITOURINARY/GYNECOLOGICAL Hx Genitourinary Disorders: No - PSYCHIATRIC Hx Depression: Yes Hx Substance Use: No - SURGICAL HISTORY Hx Cardiac Catheterization: Yes Other/Comment: 2004-rupture hernia,stesticle surgery,groin hernia then repeated it again . polyps removed intestine - ANESTHESIA Hx Anesthesia: Yes Hx Anesthesia Reactions: No Hx Malignant Hyperthermia: No Meds Allergies/Adverse Reactions: Allergies Allergy/AdvReac Type Severity Reaction Status Date / Time iodine Allergy ANAPHYLAXIS Verified 01/01/18 16:44 latex Allergy RASH Verified 01/01/18 16:44 contrast media Allergy ANAPHYLAXIS Uncoded 01/01/18 16:44 Physical Exam - Constitutional Appears: Chronically Ill - Head Exam Head Exam: ATRAUMATIC, NORMAL INSPECTION, NORMOCEPHALIC - ENT Exam ENT Exam: Mucous Membranes Moist - Neck Exam Neck exam: Positive for: Full Rom - Respiratory Exam Respiratory Exam: Decreased Breath Sounds, Clear to Auscultation Bilateral - Cardiovascular Exam Cardiovascular Exam: REGULAR RHYTHM, +S1, +S2 - GI/Abdominal Exam GI & Abdominal Exam: Normal Bowel Sounds - Extremities Exam Extremities exam: Positive for: normal inspection - Neurological Exam Neurological exam: Alert, CN II-XII Intact, Oriented x3 - Psychiatric Exam Psychiatric exam: Normal Affect - Skin Skin Exam: Normal Color Results - Vital Signs Recent Vital Signs: Last Vital Signs Temp 97.4 F L 01/02/18 08:24 Pulse 87 01/02/18 12:23 Resp 20 01/02/18 08:24 BP 156/86 H 01/02/18 08:24 Pulse Ox 96 01/02/18 08:24 - Labs Result Diagrams: 01/01/18 17:06 01/01/18 17:06 Labs: Laboratory Results - last 24 hr 01/01/18 01/01/18 01/01/18 17:06 17:06 20:03 WBC 7.1 RBC 4.67 Hgb 14.5 Hct 41.9 MCV 89.7 MCH 31.1 H MCHC 34.7 RDW 13.8 Plt Count 257 MPV 8.1 Neut % (Auto) 55.6 Lymph % (Auto) 30.6 [place] % (Auto) 9.5 Eos % (Auto) 3.6 Baso % (Auto) 0.7 Neut # (Auto) 3.9 Lymph # (Auto) 2.2 [place] # (Auto) 0.7 Eos # (Auto) 0.3 Baso # (Auto) 0.1 Sodium 139 Potassium 4.0 Chloride 99 Carbon Dioxide 26 Anion Gap 19 BUN 19 Creatinine 1.3 Est GFR ( Amer) > 60 Est GFR (Non-Af Amer) 56 POC Glucose (mg/dL) Random Glucose 264 H Calcium 9.1 Total Bilirubin 0.5 AST 37 ALT 38 Alkaline Phosphatase 65 Total Creatine Kinase 197 H CK-MB (Mass) 4.41 H Troponin I < 0.0120 < 0.0120 NT-Pro-B Natriuret Pep 47.2 Total Protein 7.1 Albumin 3.9 Globulin 3.2 Albumin/Globulin Ratio 1.2 TSH 3rd Generation 2.94 Urine Color Urine Clarity Urine pH Ur Specific [place] Urine Protein Urine Glucose (UA) Urine Ketones Urine Blood Urine Nitrate Urine Bilirubin Urine Urobilinogen Ur Leukocyte Esterase Urine WBC (Auto) Urine RBC (Auto) 01/01/18 01/02/18 01/02/18 22:02 04:19 06:09 WBC RBC Hgb Hct MCV MCH MCHC RDW Plt Count MPV Neut % (Auto) Lymph % (Auto) [place] % (Auto) Eos % (Auto) Baso % (Auto) Neut # (Auto) Lymph # (Auto) [place] # (Auto) Eos # (Auto) Baso # (Auto) Sodium Potassium Chloride Carbon Dioxide Anion Gap BUN Creatinine Est GFR ( Amer) Est GFR (Non-Af Amer) POC Glucose (mg/dL) 223 H 310 H Random Glucose Calcium Total Bilirubin AST ALT Alkaline Phosphatase Total Creatine Kinase CK-MB (Mass) Troponin I NT-Pro-B Natriuret Pep Total Protein Albumin Globulin Albumin/Globulin Ratio TSH 3rd Generation Urine Color Yellow Urine Clarity Clear Urine pH 5.0 Ur Specific [place] 1.016 Urine Protein 3+ H Urine Glucose (UA) 3+ H Urine Ketones Trace Urine Blood Negative Urine Nitrate Negative Urine Bilirubin Negative Urine Urobilinogen Normal Ur Leukocyte Esterase Neg Urine WBC (Auto) 1 Urine RBC (Auto) 2 01/02/18 01/02/18 07:22 12:53 WBC RBC Hgb Hct MCV MCH MCHC RDW Plt Count MPV Neut % (Auto) Lymph % (Auto) [place] % (Auto) Eos % (Auto) Baso % (Auto) Neut # (Auto) Lymph # (Auto) [place] # (Auto) Eos # (Auto) Baso # (Auto) Sodium Potassium Chloride Carbon Dioxide Anion Gap BUN Creatinine Est GFR ( Amer) Est GFR (Non-Af Amer) POC Glucose (mg/dL) 436 H* Random Glucose Calcium Total Bilirubin AST ALT Alkaline Phosphatase Total Creatine Kinase CK-MB (Mass) Troponin I 0.0130 NT-Pro-B Natriuret Pep Total Protein Albumin Globulin Albumin/Globulin Ratio TSH 3rd Generation Urine Color Urine Clarity Urine pH Ur Specific [place] Urine Protein Urine Glucose (UA) Urine Ketones Urine Blood Urine Nitrate Urine Bilirubin Urine Urobilinogen Ur Leukocyte Esterase Urine WBC (Auto) Urine RBC (Auto) Assessment & Plan (1) Atrial fib/flutter, transient Status: Chronic (2) Chest pain Status: Acute (3) Hypertensive cardiovascular disease Status: Chronic (4) Diabetes 1.5, managed as type 2 Status: Chronic (5) Hypercholesteremia Status: Chronic (6) Obesity (BMI 35.0-39.9 without comorbidity) Status: Chronic - Assessment and Plan (Free Text) Plan: As per orders.
[2018-01-02] MEDS: (Lantus) Insulin Glargine, Recombinant SC SCH (21:16)
[2018-01-02] MEDS ORDERED: Alum-Mag Hydrox-Simethicone Susp (30 mL) PO ONE (22:51)
[2018-01-03] MEDS: Tiotropium 18 mcg Cap For Inhalation INH SCH (07:09)
[2018-01-03] MEDS: (Novolin R) Insulin Human Regular 100 units/ml vial SC SCH ×2 (07:59→13:17)
[2018-01-03] MEDS: (Novolog) Insulin Aspart, Recombinant 100 u/ml 10 ml vial SC SCH ×2 (07:59→13:18)
[2018-01-03] MEDS ORDERED: Iodixanol 320 MG/ML 100 ML BOTTLE IV ONE ×2 (08:02→09:50)
[2018-01-03] MEDS ORDERED: DiphenhydrAMINE 50 mg/ml Inj IVP STA (08:05)
[2018-01-03] MEDS ORDERED: Midazolam 2 MG/2 ML VIAL ONE (09:00)
[2018-01-03] MEDS ORDERED: Lidocaine 2% MPF (5 ml) Inj ONE (09:01)
[2018-01-03] MEDS ORDERED: Verapamil 2 ML ONE (09:08)
[2018-01-03] MEDS ORDERED: Nitroglycerin 50mg in D5W 50 MG/250 ML BOTTLE IV ONE (09:09)
[2018-01-03] MEDS ORDERED: Lidocaine 4% (Laryng-O-Jet) Kit MM ONE (09:10)
--- NOTE | 2018-01-03 10:05 | CP.PCM.PN ---
Subjective - Date & Time of Evaluation Date of Evaluation: 01/03/18 Time of Evaluation: 10:03 - Subjective Subjective: s/p LHCx showing moderate CAD with elevated filling pressures ( LVEDP 30 ) Objective - Vital Signs/Intake and Output Vital Signs (last 24 hours): Temp Pulse Resp BP Pulse Ox 98.1 F 76 20 120/71 98 01/03/18 07:00 01/03/18 07:00 01/03/18 07:00 01/03/18 07:00 01/03/18 07:57 - Medications Medications: Current Medications Albuterol (Ventolin Hfa 90 Mcg/Actuation (8 G)) 1 puff INH RQ4 PRN PRN Reason: Shortness of Breath Last Admin: 01/03/18 07:09 Dose: 1 puff Allopurinol (Zyloprim) 300 mg PO DAILY [facility] Last Admin: 01/02/18 09:24 Dose: 300 mg Amitriptyline HCl (Elavil) 50 mg PO HS [facility] Last Admin: 01/02/18 21:15 Dose: 50 mg Aspirin (Ecotrin) 81 mg PO DAILY [facility] Last Admin: 01/02/18 09:24 Dose: 81 mg Ergocalciferol (Drisdol 50,000 Intl Units Cap) 1 cap PO QWK [facility] Last Admin: 01/02/18 09:24 Dose: 1 cap Ferrous Sulfate (Feosol) 325 mg PO DAILY [facility] Last Admin: 01/02/18 09:24 Dose: 325 mg Glipizide (Glucotrol) 10 mg PO BID [facility] Last Admin: 01/02/18 17:16 Dose: 10 mg Hydrochlorothiazide (Hydrodiuril) 25 mg PO DAILY [facility] Last Admin: 01/02/18 09:24 Dose: 25 mg Insulin Aspart (Novolog) 3 unit SC AC [facility] Last Admin: 01/03/18 07:59 Dose: Not Given Insulin Glargine (Lantus) 70 unit SC HS [facility] Last Admin: 01/02/18 21:16 Dose: 70 units Insulin Human Regular (Novolin R) 0 unit SC ACHS [facility] PRN Reason: Protocol Last Admin: 01/03/18 07:59 Dose: Not Given Losartan Potassium (Cozaar) 100 mg PO DAILY [facility] Last Admin: 01/02/18 09:24 Dose: 100 mg Metoprolol Tartrate (Lopressor) 100 mg PO HS [facility] Last Admin: 01/02/18 22:58 Dose: Not Given Montelukast Sodium (Singulair) 10 mg PO HS [facility] Last Admin: 01/02/18 21:15 Dose: 10 mg Multivitamins (Hexavitamin) 1 tab PO DAILY [facility] Last Admin: 01/02/18 09:24 Dose: 1 tab [id number] Ethyl Esters (Lovaza) 1 gm PO QID [facility] Last Admin: 01/02/18 21:30 Dose: 1 gm Pantoprazole Sodium (Protonix Ec Tab) 40 mg PO DAILY [facility] Last Admin: 01/02/18 23:52 Dose: 40 mg Rivaroxaban (Xarelto) 20 mg PO DAILY [facility] Last Admin: 01/02/18 09:23 Dose: 20 mg Tiotropium [place] (Spiriva) 18 mcg INH RQ24 [facility] Last Admin: 01/03/18 07:09 Dose: Not Given - Labs Labs: 01/01/18 17:06 01/01/18 17:06 - Constitutional Appears: Well - Head Exam Head Exam: ATRAUMATIC, NORMAL INSPECTION, NORMOCEPHALIC - Eye Exam Eye Exam: EOMI, Normal appearance, PERRL Pupil Exam: NORMAL ACCOMODATION, PERRL - ENT Exam ENT Exam: Mucous Membranes Moist, Normal Exam - Neck Exam Neck Exam: Full ROM, Normal Inspection. absent: Lymphadenopathy - Respiratory Exam Respiratory Exam: Clear to Ausculation Bilateral, NORMAL BREATHING PATTERN - Cardiovascular Exam Cardiovascular Exam: Irregular Rhythm, +S1, +S2, Murmur - GI/Abdominal Exam GI & Abdominal Exam: Soft, Normal Bowel Sounds. absent: Tenderness - Extremities Exam Extremities Exam: Full ROM, Normal Capillary Refill, Normal Inspection. absent : Joint Swelling, Pedal Edema - Back Exam Back Exam: NORMAL INSPECTION - Neurological Exam Neurological Exam: Alert, Awake, CN II-XII Intact, Normal Gait, Oriented x3 - Psychiatric Exam Psychiatric exam: Normal Affect, Normal Mood - Skin Skin Exam: Dry, Intact, Normal Color, Warm Assessment and Plan (1) Shortness of breath Assessment & Plan: Elevated LVEDP 30 2' to diastolic dysfunction etiology ? sleep apnea low dose diuretic therapy ( HCTZ 25mg po daily ) Status: Acute (2) Atrial fib/flutter, transient Assessment & Plan: cont bb cont xarelto Status: Chronic (3) Chest pain Assessment & Plan: pt had diaphoresis during episode of afib w rvr Status: Acute (4) CAD (coronary artery disease) Assessment & Plan: bb intolerant to statins s/p LHCx for abnormal stress test ( moderate CAD ) asa stable to dc home Status: Chronic (5) Hypercholesteremia Status: Chronic
[2018-01-03] MEDS: Omega-3-Acid Ethyl Esters 1 GM Cap PO SCH ×3 (11:09→16:57)
[2018-01-03] MEDS: Multiple Vitamins Tab PO SCH ×2 (11:09→14:10)
[2018-01-03] MEDS: Pantoprazole 40 mg EC Tab PO SCH ×2 (11:10→14:10)
[2018-01-03] MEDS ORDERED: Sodium Chloride 0.9% 500 ML IV SCH (11:30)
--- NOTE | 2018-01-03 13:26 | CP.PCM.PN ---
Subjective - Date & Time of Evaluation Date of Evaluation: 01/03/18 Time of Evaluation: 13:27 - Subjective Subjective: Patient in post cardiac cath. Not in distress, looks comfortable. If stable will dc today. F/U with pulmonary for sleep apnea. Objective - Vital Signs/Intake and Output Vital Signs (last 24 hours): Temp Pulse Resp BP Pulse Ox 98.1 F 80 20 120/71 98 01/03/18 07:00 01/03/18 07:11 01/03/18 07:00 01/03/18 07:00 01/03/18 07:57 - Medications Medications: Current Medications Albuterol (Ventolin Hfa 90 Mcg/Actuation (8 G)) 1 puff INH RQ4 PRN PRN Reason: Shortness of Breath Last Admin: 01/03/18 07:09 Dose: 1 puff Allopurinol (Zyloprim) 300 mg PO DAILY [facility] Last Admin: 01/03/18 11:10 Dose: Not Given Amitriptyline HCl (Elavil) 50 mg PO HS [facility] Last Admin: 01/02/18 21:15 Dose: 50 mg Aspirin (Ecotrin) 81 mg PO DAILY [facility] Last Admin: 01/03/18 11:08 Dose: Not Given Ergocalciferol (Drisdol 50,000 Intl Units Cap) 1 cap PO QWK [facility] Last Admin: 01/02/18 09:24 Dose: 1 cap Ferrous Sulfate (Feosol) 325 mg PO DAILY [facility] Last Admin: 01/03/18 11:08 Dose: Not Given Glipizide (Glucotrol) 10 mg PO BID [facility] Last Admin: 01/03/18 11:09 Dose: Not Given Hydrochlorothiazide (Hydrodiuril) 25 mg PO DAILY [facility] Last Admin: 01/03/18 11:09 Dose: Not Given Sodium Chloride (Sodium Chloride 0.9%) 500 mls @ 50 mls/hr IV .Q10H [facility] Stop: 01/03/18 14:30 Insulin Aspart (Novolog) 3 unit SC AC [facility] Last Admin: 01/03/18 13:18 Dose: Not Given Insulin Glargine (Lantus) 70 unit SC HS [facility] Last Admin: 01/02/18 21:16 Dose: 70 units Insulin Human Regular (Novolin R) 0 unit SC ACHS [facility] PRN Reason: Protocol Last Admin: 01/03/18 13:17 Dose: Not Given Losartan Potassium (Cozaar) 100 mg PO DAILY [facility] Last Admin: 01/03/18 11:08 Dose: Not Given Metoprolol Tartrate (Lopressor) 100 mg PO HS [facility] Last Admin: 01/02/18 22:58 Dose: Not Given Montelukast Sodium (Singulair) 10 mg PO HS [facility] Last Admin: 01/02/18 21:15 Dose: 10 mg Multivitamins (Hexavitamin) 1 tab PO DAILY [facility] Last Admin: 01/03/18 11:09 Dose: Not Given [id number] Ethyl Esters (Lovaza) 1 gm PO QID [facility] Last Admin: 01/03/18 11:09 Dose: Not Given Pantoprazole Sodium (Protonix Ec Tab) 40 mg PO DAILY [facility] Last Admin: 01/03/18 11:10 Dose: Not Given Rivaroxaban (Xarelto) 20 mg PO DAILY [facility] Last Admin: 01/03/18 13:18 Dose: Not Given Tiotropium [place] (Spiriva) 18 mcg INH RQ24 [facility] Last Admin: 01/03/18 07:09 Dose: Not Given - Labs Labs: 01/01/18 17:06 01/01/18 17:06 - Constitutional Appears: No Acute Distress - Head Exam Head Exam: ATRAUMATIC, NORMAL INSPECTION, NORMOCEPHALIC - Eye Exam Eye Exam: Normal appearance - Neck Exam Neck Exam: Full ROM - Respiratory Exam Respiratory Exam: Clear to Ausculation Bilateral - Cardiovascular Exam Cardiovascular Exam: REGULAR RHYTHM, +S1, +S2 - GI/Abdominal Exam GI & Abdominal Exam: Normal Bowel Sounds - Neurological Exam Neurological Exam: Alert, Awake, Oriented x3 - Psychiatric Exam Psychiatric exam: Normal Affect - Skin Skin Exam: Normal Color Assessment and Plan (1) Atrial fib/flutter, transient Status: Chronic (2) Chest pain Status: Acute (3) Hypertensive cardiovascular disease Status: Chronic (4) Diabetes 1.5, managed as type 2 Status: Chronic (5) Hypercholesteremia Status: Chronic (6) Obesity (BMI 35.0-39.9 without comorbidity) Status: Chronic (7) Sleep apnea Status: Chronic - Assessment and Plan (Free Text) Plan: Will dc patient home today if cleared by cardiology.
[2018-01-03 16:13] VITALS: BP 135/80; PULSE 87; RESP 20; TEMP 97.2; O2SAT 95
--- NOTE | 2018-01-04 14:02 | CARD ---
APPROVED REPORT Date of service: 01/01/2018 EKG Measurement Heart [id number] <Conclusion> Sinus rhythm with frequent APB's Rightward axis Abnormal ECG
== END 2018-01-03 17:09 | disposition home or self-care (01) ==
LOC: C.ER 16:02 → C.9E 17:57 → C.6T 18:26
PROVIDERS: ADMIT Internal Medicine; ATTEND Internal Medicine
DX: I25.10 Atherosclerotic heart disease of native coronary artery without angina pectoris (principal); I48.92 Unspecified atrial flutter; I48.91 Unspecified atrial fibrillation; E11.9 Type 2 diabetes mellitus without complications; E66.9 Obesity, unspecified; E78.00 Pure hypercholesterolemia, unspecified; G47.30 Sleep apnea, unspecified; I11.9 Hypertensive heart disease without heart failure; J43.9 Emphysema, unspecified; Z79.01 Long term (current) use of anticoagulants; Z86.73 Personal history of transient ischemic attack (TIA), and cerebral infarction without residual deficits; F32.9 Major depressive disorder, single episode, unspecified; K29.70 Gastritis, unspecified, without bleeding; M10.9 Gout, unspecified; R00.2 Palpitations; R42 Dizziness and giddiness; Z68.35 Body mass index [BMI] 35.0-35.9, adult
CPT/HCPCS: 36415; 71045; 76937; 78452; 80053; 81001; 82948; 83880; 84443; 84484; 85025; 93005; 93017; 93458; 94640; 96374; 99152; 99153; 99285; A9502; C1758; C1769; C1887; G0378; J1644; J2250; J2785; J2930; J3010; Q9967